=== PATIENT | female | born 1975 | race Two or more races ===

== ENCOUNTER 2019-01-23 09:19 | Day surgery (SDC) | payer MEDICAID ==
[~2019-01-23] VITALS: Ht 167.6 cm; Wt 58.5 kg
[~2019-01-23 09:19] MED LIST: LACTATED RINGERS 1,000 ML IV SCH
[2019-01-23] MEDS ORDERED: FENTANYL CITRATE/PF 50MCG/ML 2ML VIAL ONE (09:58)
[2019-01-23] MEDS ORDERED: PROPOFOL 200MG/20ML VIAL IV ONE (09:59)
[2019-01-23] MEDS ORDERED: ROCURONIUM BROMIDE 10MG/ML VIAL 5ML IV ONE (09:59)
[2019-01-23] MEDS ORDERED: MIDAZOLAM HCL 2 MG/2 ML VIAL ONE (09:59)
[2019-01-23 10:01] LABS: UCG SCREEN NEGATIVE
[2019-01-23] MEDS ORDERED: BUPIVACAINE HCL/PF 0.5% (5MG/ML) 10ML ONE ×2 (10:02→10:03)
[2019-01-23] MEDS ORDERED: SKIN ADHESIVE 0.7 GM EA TOP ONE (10:02)
[2019-01-23] MEDS ORDERED: VASOPRESSIN 20 UNIT/ML 1ML ONE (10:03)
[2019-01-23] MEDS ORDERED: CEFAZOLIN SODIUM 1000MG/VIAL ONE (10:04)
[2019-01-23 10:07] LABS: HEMOGLOBIN 11.8 g/dL (12.0-16.0)
[2019-01-23 10:16] LABS: CHLORIDE 107 mEq/L (98-107)
[2019-01-23] MEDS ORDERED: KETOROLAC 30MG/ML VIAL ONE (11:19)
[2019-01-23] MEDS ORDERED: DEXAMETHASONE 4MG/ML 1ML VIAL ONE (11:19)
[2019-01-23] MEDS ORDERED: ONDANSETRON HCL 4MG/2ML INJ ONE (11:19)
[2019-01-23] MEDS ORDERED: HYDROMORPHONE HCL/PF 2MG/ML (OR) ONE (11:52)
[2019-01-23] MEDS ORDERED: FENTANYL CITRATE/PF 50MCG/ML 2ML VIAL IV PRN (15:15)
[2019-01-23] MEDS ORDERED: ONDANSETRON HCL 4MG/2ML INJ IV PRN (15:15)
[2019-01-23] MEDS ORDERED: MEPERIDINE HCL/PF 25MG/ML CPJ IV PRN (15:15)
[2019-01-23] MEDS: HYDROMORPHONE HCL/PF 2MG/ML CPJ IV PRN ×2 (15:34→15:50)
[2019-01-23 15:50] VITALS: BP 130/77
== END 2019-01-23 17:30 | disposition home or self-care (01) ==
LOC: OR 09:19
PROVIDERS: ATTEND Obstetrics & Gynecology
DX: D25.9 Leiomyoma of uterus, unspecified (principal); N92.6 Irregular menstruation, unspecified; R10.2 Pelvic and perineal pain; Z79.899 Other long term (current) drug therapy; Z88.1 Allergy status to other antibiotic agents
CPT/HCPCS: 36415; 58545; 80053; 81025; 85014; 85018; 88305; J0690; J1100; J1170; J1885; J2250; J2405; J2704; J3010; J3490; S2900